=== PATIENT | female | born 1960 | race African-American/Black ===

== ENCOUNTER 2024-11-12 22:08 | Emergency (ER) | payer SELFPAY ==
[~2024-11-12] VITALS: Ht 167.6 cm; Wt 104.0 kg
[2024-11-12 22:24] VITALS: TEMP 36.9; O2SAT 99
[2024-11-12 23:43] LABS: GLUCOSE URINE NEGATIVE (NEGATIVE); KETONES URINE NEGATIVE (NEGATIVE)
[2024-11-13] MEDS: TETANUS, DIPHTHERIA, PERTUSSIS VAC/PF 0.5ML (>10YR OLD) IM ONE (01:25)
[2024-11-13 01:49] LABS: CLARITY URINE CLEAR (CLEAR); COLOR URINE YELLOW (YELLOW)
[2024-11-13 01:50] LABS: PH URINE 5.5 (4.5-8.0); PROTEIN URINE NEGATIVE (NEGATIVE)
[2024-11-13 01:51] LABS: NITRITE URINE POSITIVE (NEGATIVE); OCCULT BLOOD URINE 2+ (NEGATIVE); UROBILINOGEN URINE 0.2 E.U./dL (0.2-1.0)
[2024-11-13 01:52] LABS: LEUKOCYTE ESTERASE URINE 1+ (NEGATIVE)
[2024-11-13 01:56] LABS: SQUAMOUS EPITHELIAL CELL URINE FEW /lpf (RARE/1+)
[2024-11-13 01:58] LABS: BACTERIA URINE 1+
[2024-11-13 02:13] LABS: BASOPHILS % 0.4 % (0.0-2.0); EOSINOPHILS % 1.4 % (0.0-5.0); HEMATOCRIT. 42.8 % (36.0-48.0); LYMPHOCYTES % 19.2 % (20.0-50.0); MEAN CORPUSCULAR HEMOGLOBIN 27.5 pg (28.0-32.0); MEAN CORPUSCULAR HGB CONC 32.6 g/dL (31.0-37.0); MEAN CORPUSCULAR VOLUME 84.3 fL (81.0-99.0); MEAN PLATELET VOLUME 7.2 fl (7.4-10.4); MONOCYTES % 5.2 % (2.0-8.0); NEUTROPHILS % 73.8 % (40.0-76.0); PLATELET 294 x1000/uL (130-400); RED BLOOD CELL COUNT 5.08 mill/uL (4.2-5.4); RED CELL DISTRIBUTION WIDTH 13.9 % (11.6-14.6); WHITE BLOOD COUNT 9.2 x1000/uL (4.5-11.0)
[2024-11-13 02:15] LABS: CHLORIDE 102 mEq/L (98-107); SODIUM 137 mEq/L (136-145)
[2024-11-13 02:16] LABS: CALCIUM 10.5 mg/dL (8.7-10.4); CARBON DIOXIDE 29 mEq/L (21-32)
[2024-11-13 02:21] LABS: CREATININE 0.9 mg/dL (0.6-1.0); GLUCOSE 100 mg/dL (70-105); UREA NITROGEN BLOOD 9 mg/dL (9-23)
[2024-11-13 02:23] LABS: ALANINE AMINOTRANSFERASE 10 IU/L (10-49); ALBUMIN 4.7 g/dL (3.2-4.8); ASPARTATE AMINOTRANSFERASE 13 IU/L (<34); BILIRUBIN TOTAL 0.5 mg/dL (0.1-1.0)
[2024-11-13 02:28] LABS: BILIRUBIN DIRECT < 0.1 mg/dL (<=3.0)
[2024-11-13] MEDS: CEFTRIAXONE SODIUM 1G VIAL IM ONE (02:34)
[2024-11-13] MEDS: LIDOCAINE HCL 1% 20ML VIAL INFIL ONE (02:35)
[2024-11-13] MEDS ORDERED: CEFP200T13 MT (02:58)
[2024-11-13] MEDS: HYDROCODONE/ACETAMINOPHEN 5/325MG TABLET PO ONE (03:01)
[2024-11-13 03:13] VITALS: BP 130/72; PULSE 67; RESP 17; O2SAT 98
[2024-11-13] MEDS ORDERED: FAMO-135 MT (06:07)
== END 2024-11-13 03:06 | disposition home or self-care (01) ==
LOC: ER 22:08
DX: N39.0 Urinary tract infection, site not specified (principal)
CPT/HCPCS: 99285; 81003; 87086; 74176; 80076; 80048; 83690; 85025; 36415; 90715; 90471; 96372; J0696; J3490

== ENCOUNTER 2024-11-13 03:50 | Emergency (ER) | payer SELFPAY ==
[~2024-11-13] VITALS: Ht 160 cm; Wt 81.8 kg
[~2024-11-13 03:50] MED LIST: CEFP200T13 MT
[2024-11-13 04:40] VITALS: TEMP 36.7; O2SAT 100
[2024-11-13] MEDS ORDERED: FAMO-135 MT (06:07)
[2024-11-13 06:20] VITALS: BP 137/84; PULSE 65; RESP 17; O2SAT 100
== END 2024-11-13 06:17 | disposition home or self-care (01) ==
LOC: ER 03:50
DX: K21.9 Gastro-esophageal reflux disease without esophagitis (principal); F41.9 Anxiety disorder, unspecified
CPT/HCPCS: 71045; 99283